=== PATIENT | female | born 1955 | race Caucasian/White ===

== ENCOUNTER 2021-08-01 11:49 | Inpatient (IN) | payer MEDICARE ==
[2006-04-08 18:17] VITALS: BP 116/80
[~2021-08-01] VITALS: Ht 162.6 cm; Wt 56.5 kg
[2021-08-01] VITALS (149 sets, daily range): BP systolic 117–143; BP diastolic 60–100; PULSE 90–130; TEMP 99.1–100.1; O2SAT 73–100
[~2021-08-01 11:49] MED LIST: ASPIR-LOW81 MG PO; ASPIRIN E.C. 8181 MG PO; BENTYL 20MG20 MG/TAB PO; CHOLESTEROL MED; FLAGYL500 MG PO; GLUCOPHAGE500 MG/TAB PO; GLUCOTROL 5M5 MG/TAB PO; METFORMIN500 MG PO; MILLIPRED DP5 MG PO; NEXIUM 40MG40 MG PO; NORCO 325 MG-51 TAB PO; NORCO 325 MG-7.1 TAB PO; PEPCID 20MG TAB20 MG PO; PERCOCET 325 MG1 TA2 PO; PERCOCET 5/321 UDTAB PO; PRILOSEC10 MG PO; ULTRAM 50MG TAB50 MG PO; ZOFRAN 4MG T4 MG/TAB PO
[2021-08-01 12:31] LABS: COLLECTION METHOD CLEAN CATCH
[2021-08-01 12:45] LABS: HEMATOCRIT 39.4 % (37.0-47.0); HEMOGLOBIN 13.2 g/dl (12.5-16.0); MEAN CELL VOLUME 89 fl (80.0-100.0); MEAN CORPUSCULAR HEMOGLOBIN 30 pg (27.0-31.0); MEAN CORPUSCULAR HGB CONC 34 g/dl (33.0-37.0); MEAN PLATELET VOLUME 12.5 fl (7.4-10.4); PLATELET COUNT 178 K/mm3 (130-400); RED BLOOD COUNT 4.45 M/mm3 (4.10-5.30); REDCELL DISTRIBUTION WIDTH-CV 13.2 % (11.5-14.5)
[2021-08-01 12:53] LABS: MUCOUS Present /lpf; PH 5 (5-8); SQUAMOUS EPITHELIAL None Seen /hpf; URINE APPEARANCE Turbid; URINE BACTERIA Moderate /hpf; URINE BILIRUBIN Negative (NEGATIVE); URINE BLOOD 2+ (NEGATIVE); URINE COLOR Amber; URINE GLUCOSE 3+ (NEGATIVE); URINE KETONE Trace (NEGATIVE); URINE LEUKOCYTE ESTERASE 3+ (NEGATIVE); URINE NITRATE Negative (NEGATIVE); URINE PROTEIN(semi-quant) 3+ (NEGATIVE); URINE RBC >50 /hpf; URINE UROBILINOGEN Negative (NEGATIVE)
[2021-08-01 13:00] LABS: BAND 15 % (0-10); BASOPHIL 1 % (0-2); LYMPHOCYTE 9 % (20.0-51.0); NEUTROPHILS 68 % (42.0-75.2); PLATELET ESTIMATE NORMAL (NORMAL)
[2021-08-01 14:01] LABS: ALBUMIN 3.1 gm/dL (3.4-4.8); BILIRUBIN,TOTAL 0.4 mg/dL (0.2-1.2); CALCIUM 9.2 mg/dL (8.4-10.2); CREATININE, serum 1.49 mg/dL (0.57-1.11); TOTAL PROTEIN 6.7 gm/dL (6.2-8.1)
[2021-08-01] MEDS ORDERED: JANUMXR100-1000 PO (15:59)
[2021-08-01] MEDS ORDERED: PROTONIX 40MG T40 MG PO (15:59)
[2021-08-01] MEDS ORDERED: DITROPAN XL10 MG PO (15:59)
[2021-08-01] MEDS ORDERED: PAMELOR 10MG10 MG PO (15:59)
[2021-08-01] MEDS ORDERED: ZOCOR 20MG20 MG PO (15:59)
[2021-08-01] MEDS ORDERED: VITAMIN D31000 IU PO (16:00)
[2021-08-01] MEDS ORDERED: PRINIVIL2.5 MG PO (16:00)
[2021-08-01] MEDS ORDERED: PRESERVISION1 SGL PO (16:00)
--- NOTE | 2021-08-01 18:38 | NUR ---
PATIENT STATES THAT SHE DOES NOT WANT HER FAMILY CONTACTED.
[2021-08-02] VITALS (415 sets, daily range): BP systolic 116–145; BP diastolic 57–84; PULSE 94–115; TEMP 98.7–99.8; O2SAT 88–100
[2021-08-02 06:04] LABS: MEAN CELL VOLUME 87 fl (80.0-100.0); MEAN CORPUSCULAR HGB CONC 34 g/dl (33.0-37.0); MEAN PLATELET VOLUME 11.5 fl (7.4-10.4); PLATELET COUNT 147 K/mm3 (130-400); RED BLOOD COUNT 3.69 M/mm3 (4.10-5.30); REDCELL DISTRIBUTION WIDTH-CV 13.4 % (11.5-14.5)
[2021-08-02 06:22] LABS: HEMATOCRIT 32.2 % (37.0-47.0); HEMOGLOBIN 10.9 g/dl (12.5-16.0); MEAN CORPUSCULAR HEMOGLOBIN 30 pg (27.0-31.0)
[2021-08-02 06:25] LABS: BAND 4 % (0-10); LYMPHOCYTE 8 % (20.0-51.0); NEUTROPHILS 80 % (42.0-75.2); PLATELET ESTIMATE NORMAL (NORMAL)
[2021-08-02 06:29] LABS: CALCIUM 8.1 mg/dL (8.4-10.2); CREATININE, serum 0.91 mg/dL (0.57-1.11); MAGNESIUM 1.4 mg/dL (1.6-2.6); POTASSIUM 3.6 mmol/L (3.5-4.5)
--- NOTE | 2021-08-02 09:35 | NUR ---
Initial visit; Patient thanked [employer] for looking in on her and keeping her in [employer] prayers.
--- NOTE | 2021-08-02 11:38 | NUR ---
SW met with patient at bedside to discuss discharge plan. Patient reports she lives by herself in [place]. Patient states she is fully independent and has no DMEs or or home oxygen needs. She is retired and sees Dr. Nishi Peter as her PCP. Patient states she uses [facility] for her prescription needs and has no difficulty affording them. Patient's only child, son Josep Grant, lives in [place] ([phone]). Patient did not have an MPOA but this worker assisted patient in completing form, naming her son as her agent. Patient was provided original POA with copies; DUSTIN Gurrola signed as a witness and copy was placed on patient's chart. SW will follow for discharge needs.
--- NOTE | 2021-08-02 20:18 | NUR ---
RESTING COMFORTABLE ON COT DENIES PAIN OR DISCOMFORT
[2021-08-03] VITALS (170 sets, daily range): BP systolic 118–154; BP diastolic 68–79; PULSE 75–93; TEMP 97.8–99.3; O2SAT 87–100
[2021-08-03 04:27] LABS: BASO % 0.3 % (0.0-2.0); EOS % 0.1 % (0-4.0); GRAN # 7.6 K/mm3 (1.4-6.5); GRAN % 81.7 % (42.2-75.2); LYMPH # 0.9 K/mm3 (1.2-3.4); LYMPH % 9.2 % (20.0-51.0); MEAN CELL VOLUME 87 fl (80.0-100.0); MEAN CORPUSCULAR HGB CONC 34 g/dl (33.0-37.0); MEAN PLATELET VOLUME 11.5 fl (7.4-10.4); MONO # 0.7 K/mm3 (0.1-0.6); MONO % 7.9 % (1.7-9.3); PLATELET COUNT 133 K/mm3 (130-400); RED BLOOD COUNT 3.12 M/mm3 (4.10-5.30); REDCELL DISTRIBUTION WIDTH-CV 13.8 % (11.5-14.5)
[2021-08-03 04:28] LABS: HEMATOCRIT 27.1 % (37.0-47.0); HEMOGLOBIN 9.2 g/dl (12.5-16.0); MEAN CORPUSCULAR HEMOGLOBIN 29 pg (27.0-31.0)
[2021-08-03 04:46] LABS: CALCIUM 8.3 mg/dL (8.4-10.2); CREATININE, serum 0.7 mg/dL (0.57-1.11); POTASSIUM 3.3 mmol/L (3.5-4.5)
--- NOTE | 2021-08-03 07:00 | NUR ---
RECEIVED REPORT FROM DUSTIN ROSS. PT SLEEPING IN BED ON RA. VSS. CALL LIGHT WITHIN REACH.
[2021-08-04] VITALS (184 sets, daily range): BP systolic 137–163; BP diastolic 76–86; PULSE 70–84; TEMP 98–98.8; O2SAT 88–100
[2021-08-04 05:27] LABS: BASO % 0.4 % (0.0-2.0); EOS # 0.1 K/mm3 (0.0-0.7); EOS % 0.8 % (0-4.0); GRAN # 5.6 K/mm3 (1.4-6.5); GRAN % 67.5 % (42.2-75.2); LYMPH # 1.9 K/mm3 (1.2-3.4); LYMPH % 23.3 % (20.0-51.0); MEAN CELL VOLUME 88 fl (80.0-100.0); MEAN CORPUSCULAR HGB CONC 33 g/dl (33.0-37.0); MONO # 0.6 K/mm3 (0.1-0.6); MONO % 7.4 % (1.7-9.3); PLATELET COUNT 165 K/mm3 (130-400); RED BLOOD COUNT 3.31 M/mm3 (4.10-5.30); REDCELL DISTRIBUTION WIDTH-CV 14.3 % (11.5-14.5)
[2021-08-04 05:34] LABS: HEMOGLOBIN 9.7 g/dl (12.5-16.0); MEAN CORPUSCULAR HEMOGLOBIN 29 pg (27.0-31.0)
[2021-08-04 05:46] LABS: CALCIUM 9.1 mg/dL (8.4-10.2); CREATININE, serum 0.69 mg/dL (0.57-1.11); POTASSIUM 3.7 mmol/L (3.5-4.5)
--- NOTE | 2021-08-04 07:00 | NUR ---
RECEIVED REPORT FROM DUSTIN GUNN. PT SLEEPING ON RA. VSS. CALL LIGHT WITHIN REACH.
[2021-08-04] MEDS ORDERED: OMNICEF 300MG300 MG PO (11:43)
== END 2021-08-04 13:20 | disposition home or self-care (01) | DRG 871 ==
LOC: COL.ER 11:49 → ICU 15:17
PROVIDERS: Physician Assistant; Student in an Organized Health Care Education/Training Program; ADMIT Internal Medicine
DX: A41.9 Sepsis, unspecified organism (principal); E11.10 Type 2 diabetes mellitus with ketoacidosis without coma; N12 Tubulo-interstitial nephritis, not specified as acute or chronic; N17.9 Acute kidney failure, unspecified; I10 Essential (primary) hypertension; K21.9 Gastro-esophageal reflux disease without esophagitis; E78.5 Hyperlipidemia, unspecified; F17.210 Nicotine dependence, cigarettes, uncomplicated; N32.81 Overactive bladder; E11.40 Type 2 diabetes mellitus with diabetic neuropathy, unspecified; R13.10 Dysphagia, unspecified; Z20.822 Contact with and (suspected) exposure to COVID-19
CPT/HCPCS: 99223-AI; 99232-AI; 99233-AI; 99239; J0692; J0696; J1644; J1815; J2060; J2270; J2405; J2543; J3475; J7030

== ENCOUNTER 2021-08-15 16:10 | Emergency (ER) | payer MEDICARE ==
[~2021-08-15] VITALS: Ht 160 cm; Wt 52.7 kg
[~2021-08-15 16:10] MED LIST changes: +DITROPAN XL10 MG PO; +JANUMXR100-1000 PO; +OMNICEF 300MG300 MG PO; +PAMELOR 10MG10 MG PO; +PRESERVISION1 SGL PO; +PRINIVIL2.5 MG PO; +PROTONIX 40MG T40 MG PO; +VITAMIN D31000 IU PO; +ZOCOR 20MG20 MG PO
[2021-08-15 17:10] VITALS: BP 161/78; TEMP 98.1
[2021-08-15 17:24] LABS: COLLECTION METHOD CLEAN CATCH
[2021-08-15 17:46] LABS: PH 6 (5-8); SQUAMOUS EPITHELIAL 0-2 /hpf; URINE APPEARANCE Cloudy; URINE BACTERIA None Seen /hpf; URINE BILIRUBIN Negative (NEGATIVE); URINE BLOOD Negative (NEGATIVE); URINE COLOR Yellow; URINE GLUCOSE 3+ (NEGATIVE); URINE KETONE Negative (NEGATIVE); URINE LEUKOCYTE ESTERASE 3+ (NEGATIVE); URINE NITRATE Positive (NEGATIVE); URINE PROTEIN(semi-quant) Negative (NEGATIVE); URINE RBC 0-2 /hpf; URINE UROBILINOGEN Negative (NEGATIVE)
[2021-08-15] MEDS ORDERED: MACROBID 1100 MG/CAP PO (18:49)
[2021-08-15 19:10] VITALS: PULSE 78
== END 2021-08-15 19:10 | disposition home or self-care (01) ==
LOC: COL.ER 16:10
PROVIDERS: Family Medicine
DX: N39.0 Urinary tract infection, site not specified (principal)